=== PATIENT | female | born 1935 | race Caucasian/White ===

== ENCOUNTER 2021-01-07 10:51 | Outpatient (CLI) | payer OTHER, SELFPAY ==
--- NOTE | ~2021-01-07 | CT_ITS ---
EXAMINATION:CT chest high resolution wo ok DATE: 01/07/2021 11:27 INDICATION: Interstitial pulmonary disease, unspecified. TECHNIQUE: Computed tomography (CT) of the chest was performed without intravenous contrast. Automate d exposure control and iterative reconstruction technique were employed. The dose-length product (DLP ) was 608.28 mGy-cm. COMPARISON: Chest CT 07/01/2017 FINDINGS: There is mild scarring at the lung apices. There is mild atelectasis involving all lobes bi laterally. Again seen are subpleural bands in the lower lobes and right middle lobe. No bronchiectasi s or honeycombing. No pleural effusion. Cardiomegaly is noted. There are coronary artery calcificatio ns. There are calcifications of the aortic valve. No pericardial effusion. There is a small sliding h iatal hernia. There is a 2 subcutaneous masses in the posterior superior thorax measuring up to 15 mm , likely sebaceous cysts. There is moderate thoracic spondylosis. IMPRESSION: 1. Mild chronic interstitial lung disease. 2. Small sliding hiatal hernia. Reviewed, dictated and finalized at location A. [employer]
== END 2021-01-07 10:52 | disposition home or self-care (01) ==
LOC: ANHIMG 10:52
PROVIDERS: PCP Family Medicine; Visit Provider Nurse Practitioner Family
DX: J84.9 Interstitial pulmonary disease, unspecified (principal); K44.9 Diaphragmatic hernia without obstruction or gangrene
CPT/HCPCS: 71250

== ENCOUNTER 2021-01-23 14:22 | Outpatient (CLI) | payer OTHER, SELFPAY ==
[2021-01-23 14:30] VITALS: PULSE 87; O2SAT 95
[2021-01-23 14:35] VITALS: PULSE 106; O2SAT 96
[2021-01-23 14:40] VITALS: PULSE 85; O2SAT 96
--- NOTE | 2021-01-23 15:37 | HOMEO2EVAL ---
Evaluation was performed at [facility] Home Oxygen Evaluation RC: Home Oxygen (O2) Evaluation Start: 01/23/21 15:35 Freq: Status: Active Protocol: RPE Activity Type Activity Date Activity User E-Sign Co-Sign Detail Recorded Client Recorded Date Recorded By Document 01/23/21 14:30 DJO [email or web address] 01/23/21 15:37 DJO Document 01/23/21 14:35 DJO [email or web address] 01/23/21 15:37 DJO Document 01/23/21 14:40 [email or web address] [email or web address] 01/23/21 15:37 DJO 01/23/21 01/23/21 01/23/21 14:30 14:35 14:40 Home O2 Evaluation Test Phase Resting Exercise Resting Oxygen Delivery Room Air Room Air Room Air Pulse Oximetry (90-100 %) 95 96 96 Pulse Rate (60-100 beats/min) 87 106 H 85 Activity Tolerance Poor Ambulation Distance (feet) 200 Home Oxygen Evaluation Comments 6 MINUTE WALK NOT DONE DUE TO PT ONLY BEING ABLE TO WALK FOR SHORT DISTANCE DUE TO LEG AND BACK PAIN Treatment Charges O2 Evaluation - Outpatient
--- NOTE | 2021-01-26 12:50 | P.PCNPFT_ITS ---
PFT Procedure Performed PFT Procedure Performed Spirometry with Pre/Post Bronchodilator Plethysmography (Lung Vol) Diffusing Cap (DLCO) Flow Vol Loop PFT Interpretation This is a pulmonary function test with pre and post-bronchodilator spirometry, plethysmography and diffusing capacity. The test was performed and results interpreted in accordance with the 2019 and 2005 ATS/ERS Task Force guidelines respectively using the Global Lung Function Initiative-2012 reference equations. Patient demonstrated good effort and cooperation. Reproducibility criteria were met. The quality of the pre bronchodilator spirometry maneuver was Grade B and post bronchodilator spirometry maneuver was Grade B. Findings: Spirometry: The contour the inspiratory and expiratory flow tracing are normal. The pre bronchodilator FVC is 2.36 L, 84% predicted. The pre bronchodilator FEV1 is 1.77 L, 84% predicted. The FEV1: FVC ratio 75%. The post bronchodilator FVC is 2.21 L, representing a 7% decrease. The post bronchodilator FEV1 is 1.75 L, representing 1% decrease. The post bronchodilator FEV1: FVC ratio 79%. Plethysmography: The total lung capacity is 6.10 L, 105% predicted. The functional residual capacity is 4.53 L, 134% predicted. The residual volume is 3.74 L, 136% predicted. Diffusing capacity: The absolute diffusion capacity is 19.4, 94% predicted. The diffusing capacity corrected for alveolar volume is 4.31, 113% predicted. Impression: The spirometry is normal without evidence of an obstructive ab normality. There is no significant improvement after inhaling a single dose of albuterol. The total lung capacity is normal with an increased functional residual capacity and residual volume. This is an abnormal but nonspecific lung volume pattern. The diffusing capacity is normal. There are no prior studies for comparison
== END 2021-01-23 14:23 | disposition home or self-care (01) ==
PROVIDERS: PCP Family Medicine; Visit Provider Nurse Practitioner Family
DX: R06.02 Shortness of breath (principal); J84.9 Interstitial pulmonary disease, unspecified
CPT/HCPCS: 94060; 94618; 94726; 94729

== ENCOUNTER 2021-08-17 14:28 | Outpatient (CLI) | payer OTHER, SELFPAY ==
[2021-08-17 15:11] LABS: Aspartate Amino Transferase 48 U/L (14-36)
[2021-08-21 15:59] LABS: Actin Antibody (IgG) <20 U (<20)
== END 2021-08-17 14:29 | disposition home or self-care (01) ==
LOC: ANHLAB 14:30
PROVIDERS: Visit Provider Podiatrist Foot & Ankle Surgery
DX: B35.1 Tinea unguium (principal)
CPT/HCPCS: 36415; 83516; 84450

== ENCOUNTER 2021-09-22 14:12 | Outpatient (CLI) | payer OTHER, SELFPAY ==
[2021-09-25 08:22] LABS: Kappa\\Lambda Light Chains 1.22 (0.26-1.65); Lambda Light Chain 13.4 mg/L (5.7-26.3)
== END 2021-09-22 14:13 | disposition home or self-care (01) ==
PROVIDERS: PCP Hospitalist; Visit Provider Internal Medicine Cardiovascular Disease
DX: I27.20 Pulmonary hypertension, unspecified (principal); R06.00 Dyspnea, unspecified
CPT/HCPCS: 36415; 83883

== ENCOUNTER 2022-05-27 14:10 | Outpatient (CLI) | payer OTHER, SELFPAY ==
[2022-05-27 14:54] LABS: Alanine Aminotransferase 26 U/L (6-35); Aspartate Amino Transferase 37 U/L (14-36)
== END 2022-05-27 14:11 | disposition home or self-care (01) ==
LOC: ANHLAB 14:12
PROVIDERS: PCP Hospitalist; Visit Provider Podiatrist Foot & Ankle Surgery
DX: B35.1 Tinea unguium (principal)
CPT/HCPCS: 36415; 84450; 84460

== ENCOUNTER 2022-07-28 14:54 | Observation (INO) | payer OTHER, SELFPAY ==
[2022-07-28] VITALS (8 sets, daily range): BP systolic 152–187; BP diastolic 31–64; PULSE 25–40; RESP 16–20; TEMP 36.3–36.6; O2SAT 94–100; BMI 38.0
--- NOTE | ~2022-07-28 | XR_ITS ---
XR chest 1V portable 07/28/2022 15:34 Indication: Bradycardia Procedure: AP portable chest Comparison: 07/28/2022 Findings: Borderline heart size. Bilateral perihilar interstitial infiltrates with peribronchial thic kening. No pleural effusion or pneumothorax. Impression: 1: Bilateral interstitial infiltrates may represent mild edema or atypical pneumonia. Reviewed, dictated and finalized at location [] Impression: 1: Bilateral interstitial infiltrates may represent mild edema or atypical pneu monia.
--- NOTE | ~2022-07-28 | XR_ITS ---
Clinical Indication: Pacemaker placement AP and lateral views of the chest: Comparison: 07/29/2022 Findings: There is minimal bibasilar pulmonary haziness. No pleural effusion or pneumothorax evident. Cardiomediastinal silhouette is stable, with pacemaker device in place. Bones and soft tissues are unremarkable. Impression: Possible minimal bibasilar pulmonary edema. No pneumothorax. Pacemaker in place. Reviewed, dictated and finalized at [facility]. Impression: Possible minimal bibasilar pulmonary edema. No pneumothorax. Pacemaker in place.
--- NOTE | ~2022-07-28 | XR_ITS ---
XR chest 1V portable 07/29/2022 16:48 Indication: Pacemaker insertion Procedure: AP portable chest Comparison: Comparison to multiple prior studies sequentially, with oldest reviewed study dated 06/21. Findings: Moderate cardiomegaly. Diffuse hazy bilateral airspace disease. Pacemaker leads are in expe cted position. Possible small left effusion. No pneumothorax. Impression: 1: Hazy diffuse bilateral airspace disease may represent edema or pneumonia. 2: Cardiomegaly. Reviewed, dictated and finalized at location L. Impression: 1: Hazy diffuse bilateral airspace disease may represent edema or pneumonia. 2: Cardiomegaly.
--- NOTE | ~2022-07-28 | US_ITS ---
EXAMINATION: US venous doppler [facility] DATE: 07/28/2022 22:38 INDICATION: edema . TECHNIQUE: Grayscale images without and with compression and Doppler images of the bilateral lower ex tremity veins were obtained. COMPARISON: 07/01/2017. FINDINGS: The right common femoral vein, profunda (deep) femoral vein, femoral vein, popliteal vein, peroneal v ein, posterior tibial veins, gastrocnemius vein, and greater saphenous vein are patent. The left common femoral vein, profunda (deep) femoral vein, femoral vein, popliteal vein, peroneal v ein, posterior tibial veins, gastrocnemius vein, and greater saphenous vein are patent. IMPRESSION: 1. Patent bilateral lower extremity veins. No evidence of deep venous thrombosis. Reviewed, dictated and finalized at location K. IMPRESSION: 1. Patent bilateral lower extremity veins. No evidence of deep venous thrombos is.
--- NOTE | 2022-07-28 14:59 | ECG_ITS ---
Measurements Intervals [place] Rate: 37 P: AL: 0 QRS: 35 QRSD: 131 T: 25 QT: 475 QTc: 376 Interpretive Statements SINUS RHYTHM WITH COMPLETE HEART BLOCK, UNDERLYING RBBB, EFFECTIVE VENTRICULAR RATE OF 37 BEATS PER MINUTE NO PREVIOUS ECG AVAILABLE FOR COMPARISON Electronically Signed On 07-28-2022 19:58:53 CDT by Brigitte Martin M.D.
[2022-07-28 15:32] LABS: Basophils Absolute Auto 0.1 K/mm3 (0.0-0.1); Basophils Percent Auto 0.6 % (0.2-1.2); Eosinophils Absolute Auto 0.1 K/mm3 (0-0.3); Hematocrit 39.6 % (37.0-47.0); Hemoglobin 12.5 g/dL (12.0-15.0); Immature Granulocyte Absolute 0.03 K/mm3 (0.00-0.031); Immature Granulocyte Percent A 0.3 % (0-0.5); Lymphocytes Absolute Auto 1.95 K/mm3 (0.9-3.2); Lymphocytes Percent Auto 18.7 % (18.3-44.2); Mean Corpuscular HGB Conc 31.6 g/dl (32-36); Mean Corpuscular Hemoglobin 28.7 pg (26-34); Mean Platelet Volume 11.4 fl (7.4-10.4); Monocytes Absolute Auto 0.9 K/mm3 (0.1-0.6); Monocytes Percent Auto 8.8 % (2.6-8.5); Neutrophils Absolute Auto 7.4 K/mm3 (1.3-6.7); Neutrophils Percent Auto 70.6 % (45.5-73.1); Platelet Count Result 241 k/mm3 (150-375); Red Blood Count 4.35 M/mm3 (4.2-5.4); Red Cell Distribution Width 14.2 % (11.5-14.5); White Blood Count 10.4 K/mm3 (4.5-10.0)
[2022-07-28 15:43] LABS: Partial Thromboplastin Time 24.6 SECONDS (22.3-36.8)
[2022-07-28 15:51] LABS: Alanine Aminotransferase 25 U/L (6-35); Albumin Level 4.3 g/dL (3.5-5.1); Alkaline Phosphatase 99 U/L (38-126); Anion Gap 10 mmol/L (8-16); Aspartate Amino Transferase 26 U/L (14-36); Bilirubin,Total 0.3 mg/dL (0.2-1.3); Blood Urea Nitrogen 64 mg/dL (7-17); Carbon Dioxide 20 mmol/L (22-30); Chloride 113 mmol/L (98-107); Estimated CRCL calculation 42 ml/min; Estimated Glomerular Filt Rate 47; Glucose 181 mg/dL (65-110); Potassium 5.5 mmol/L (3.4-5.0); Sodium 143 mmol/L (137-145)
[2022-07-28 16:00] LABS: NT Pro B Type Natriuretic Pept 3990 pg/mL (19.9-100); Troponin I 0.024 ng/mL (0.000-0.034)
[2022-07-28 16:10] LABS: Glucose Point of Care 161 mg/dl (65-105)
--- NOTE | 2022-07-28 16:26 | ED.ARRPALP ---
HPI - Arrhythmia/Palpitations General Chief Complaint: Arrhythmia/Palpitations Stated Complaint: breathing issues/ low HR Time Seen by Provider: 07/28/22 15:04 History of Present Illness HPI narrative: Patient is an 87-year-old female who presents ER with shortness of breath. Reports she has chronic shortness of breath and cough related to her lung disease. Unfortunately over the last 5 days she has developed sudden increased dyspnea. She feels short of breath at rest and extremely fatigued with going from sitting to standing. She noticed some central chest pressure 4 days ago as well that is different for her. Daughter came over to the house and it was noted that her heart rate was in the 30s yesterday. They called patient's computer networking instructor adjunct Dr. Dewitt. The office recommended she come in to be evaluated for the slow heart rate and symptoms. Related Data Home Medications Medication Instructions Recorded Confirmed aspirin 81 mg tablet,delayed 81 mg PO DAILY 02/16/19 01/13/22 release (Adult Low Dose Aspirin) atorvastatin 80 mg tablet 80 mg PO DAILY 02/16/19 01/13/22 cholecalciferol (vitamin D3) 50 2,000 unit PO DAILY 02/16/19 01/13/22 mcg (2,000 unit) capsule furosemide 20 mg tablet 20 mg PO QAM 02/16/19 01/13/22 insulin aspart U-100 100 unit/mL 20 unit subcut TID 02/16/19 01/13/22 subcutaneous solution (Novolog U-100 Insulin aspart) lisinopril 40 mg tablet 40 mg PO DAILY 02/16/19 01/13/22 oxybutynin chloride 10 mg 10 mg PO DAILY 02/16/19 01/13/22 tablet,extended release 24 hr verapamil 240 mg tablet,extended 240 mg PO DAILY 02/16/19 01/13/22 release acetaminophen 500 mg capsule 1,000 mg PO Q6H PRN 11/28/20 01/13/22 (Tylophen) hydrocodone 5 mg-acetaminophen 325 1 tablet PO QHS PRN 07/02/21 01/13/22 mg tablet Allergies Allergy/AdvReac Type Severity Reaction Status Date / Time pregabalin Allergy Intermediate Rash Verified 07/28/22 18:05 Sulfa (Sulfonamide Allergy Unknown unk Verified 07/28/22 14:56 Antibiotics) Review of Systems Review of Systems: All systems reviewed & are unremarkable except as noted in HPI and below Constitutional: Constitutional: Denies chills, Reports fatigue and Denies fever(s) ENT: Denies nasal congestion and Denies sore throat Cardiovascular: Cardiovascular: Reports chest pain, Denies rapid heart rate, Denies radiating jaw, neck or arm pain and Reports slow heart rate Respiratory: Respiratory: Denies cough, Reports dyspnea and Denies wheezing Gastrointestinal: Gastrointestinal: Denies abdominal pain, Denies nausea and Denies vomiting Neurologic: Denies focal weakness and Denies numbness PMF Past Medical History Medical History (Updated 07/28/22 @ 17:51 by Brigitte Martin MD) Acute diastolic CHF (congestive heart failure) Aortic stenosis Moderate by echo in 2022. CAD (coronary artery disease) Left anterior descending stent in 2016. Essential hypertension Generalized osteoarthritis of multiple sites Hypercholesterolemia Insulin dependent diabetes mellitus DELLA (obstructive sleep apnea) Surgical History Surgical History Total knee replacement status Family History Family History Other Cerebrovascular accident Family history of Alzheimer's disease Family history of alcoholism Family history of arthritis Family history of cardiovascular disease Family history of lung disease Hypertension Social History Social History Social History: Patient lives alone in [facility]. Her niece, Danna, checks in on her frequently. Smoking status: Never smoker Second hand tobacco smoke exposure: Yes Alcohol intake: current Drinks per week: 1 Exam Narrative: GENERAL: Well-appearing, well-nourished, and in no acute distress. HEAD: Normocephalic, atrauma
--- NOTE | 2022-07-28 17:39 | PM.CNCAR ---
Assessment and Plan Assessment and plan (1) Complete heart block: Code(s): I44.2 - Atrioventricular block, complete Status: Acute Assessment and Plan: Patient presents with new onset of complete heart block, symptomatic with heart failure. She has an underlying RBBB. She does take verapamil SR 240 mg daily which may contribute but most likely this is AV conduction disease secondary to aging. Because of her history of aortic stenosis probably has a lot of calcium along the conduction system as well. She is fairly stable, with no pauses. I recommended a pacemaker implant which we can do tomorrow. However, if there is an emergency we can do external pacing, or place a temporary transvenous pacemaker. If she would prefer to wait a day or 2 to see if this resolves off of her verapamil that is a possibility 2, although think is unlikely it resolve. The patient after discussion with her niece, is eager to have a pacemaker placed and get better quicker. This is potentially life-threatening situation which carries considerable morbidity mortality --atropine prn --permanent dual-chamber pacemaker tomorrow. Reviewed risks of pacemaker implant with patient. These include breathing problems, allergic reactions, bleeding, infection, pneumothorax, cardiac puncture, need for unanticipated surgery, lead dislodgement among others. (2) Acute diastolic CHF (congestive heart failure): Code(s): I50.31 - Acute diastolic (congestive) heart failure Status: Acute Assessment and Plan: CHF caused by bradycardia. patient has known diastolic dysfunction but has not had CHF before. DOes have pre-renal azotemia, due to poor renal perfusion, but I think she would benefit from some diuresis. --Lasix 40 mg IV push x1 --pacemaker implant tomorrow (3) CAD (coronary artery disease): Code(s): I25.10 - Atherosclerotic heart disease of [place] coronary artery without angina pectoris Status: Acute Assessment and Plan: STable CAD, h/o stent (4) Aortic stenosis: Code(s): I35.0 - Nonrheumatic aortic (valve) stenosis Status: Acute Assessment and Plan: Moderate aortic stenosis by Echo 2022. (5) DELLA (obstructive sleep apnea): Code(s): G47.33 - Obstructive sleep apnea (adult) (pediatric) Status: Acute Assessment and Plan: Noncompliant w/ CPAP uses nocturnal O2 History of Present Illness History of Present Illness Consult date/time: 07/28/22 17:39 Reason For Visit: Complete heart block Narrative: Tiffany Raymond is an 87 y.o. WF whom we were asked to see by DR. Queen for advice and opinion regarding her complete heart block, in consultation. She has been followed by Dr. Dweitt for history of CAD and stent in 2017, and moderate aortic stenosis. In addition she has diabetes and spinal stenosis, sleep apnea, noncompliant with CPAP. The patient has chronic DUMONT but this has been a lot worse since Tuesday. Her niece checked her pulse ox at home and found her heart rate was in the 30s and 40s. The patient has had significant DUMONT, had some orthopnea last night. Chronic edema. Some chest pressure when she lay down last night. She came to the emergency room was found to be in complete heart block with heart rates around 38-44 beats per minute. Underlying RBBB pattern which is chronic. No dizziness or syncope. Because of her chronic pain spinal stenosis she sleeps in an easy chair. She has sleep apnea but and could not tolerate CPAP so sleeps with oxygen. [place]. She is right-handed and has never had a clavicular fracture. 10/2021 echo: EF 66%, LVH, diastolic dysfunction, moderate aortic stenosis mean gradient 13 mmHg, STAN 1.4 cm2 10/2019 to Lexiscan: EF 59%, small area of apical septal lateral ischemia Review of Systems Constitutional: Constitutional: Denies fever(s) Eyes: Eyes: Reports no additional eye compla
[2022-07-28 17:53] LABS: Glucose Point of Care 148 mg/dl (65-105)
--- NOTE | 2022-07-28 18:00 | ADMGEN ---
This patient, Tiffany Raymond, was admitted to IMU Room 232-01. Patient/family oriented to hospital policies and general routines including ID bracelet, bed and alarms, visiting hours, pain management, procedures, bathroom and other care routines, personal items, smoking policy, room service/diet, and visiting hours. Information on how to activate the Rapid Response Team has been discussed. Patient/Family are encouraged to report perceived risks to care and to ask questions if they do not understand what they are told or what they should do.
[2022-07-28] MEDS: FUROSEMIDE INJ 40 MG/4 ML VIAL IV PUSH (18:40)
[2022-07-28 20:13] LABS: Glucose Point of Care 228 mg/dl (65-105)
[2022-07-28] MEDS: AZELASTINE HCL NASAL 0.1% 137 MCG/SPR 30 ML BTL 1 SPRAY NASAL (20:37)
[2022-07-28] MEDS: ATORVASTATIN 40 MG TABLET 80 MG PO (20:37)
[2022-07-28] MEDS: INSULIN ASPART (*BKC) 100 UNITS/ML SUB-Q ×2 (20:38)
[2022-07-28] MEDS: CHOLECALCIFEROL 1,000 UNITS TABLET 2000 UNITS PO (20:38)
[2022-07-28 21:25] LABS: Anion Gap 7 mmol/L (8-16); Blood Urea Nitrogen 62 mg/dL (7-17); Calcium 9.7 mg/dL (8.4-10.2); Carbon Dioxide 24 mmol/L (22-30); Chloride 111 mmol/L (98-107); Estimated CRCL calculation 30 ml/min; Estimated Glomerular Filt Rate 30; Glucose 231 mg/dL (65-110); Potassium 5.6 mmol/L (3.4-5.0); Sodium 142 mmol/L (137-145)
[2022-07-28] MEDS: HYDROcodone/acetaminophen (*CRX) 5-325 MG TABLET 1 TAB PO (21:46)
[2022-07-28] MEDS: oxyBUTYnin CHLORIDE XL 5 MG TAB.ER.24 PO (21:47)
[2022-07-28 22:19] LABS: Hemoglobin A1C 6.4 % (<5.7)
[2022-07-29] VITALS (23 sets, daily range): BP systolic 114–179; BP diastolic 29–95; PULSE 33–89; RESP 16–24; TEMP 35.9–37.4; O2SAT 97–100
--- NOTE | 2022-07-29 00:30 | PM.IMHP ---
H&P: HPI History of Present Illness Date/Time: 07/28/22 19:30 Chief Complaint: Shortness of breath and low heart rate. Narrative: This is an 87-year-old female with coronary artery disease, hypertension, dyslipidemia, aortic stenosis, obstructive sleep apnea (noncompliant with CPAP though wears oxygen at night), insulin-dependent diabetes, and other comorbidities who presented to the emergency department via private vehicle from home for evaluation of shortness of breath and low heart rate. The patient provides the following history. She reports chronic dyspnea on exertion though it has been much worse since the weekend. She has noticed increasing lower extremity edema and reports orthopnea last night. Her niece checked her pulse ox yesterday and noted that her heart rate was in the 30s and 40s but her SpO2 was reportedly well within normal limits. She decided to come in for evaluation today as she had mild chest pressure last night while trying to sleep. In the ED she was found to be in complete heart block with rates in the upper 30s to low 40s with stable blood pressures. She is being admitted in this setting for pacemaker implantation tomorrow per Dr. Martin. At the time my evaluation she does not have any significant complaints though she reports that she has not really gotten out of bed much that she got here today. Her main concern is that of her not yet receiving her insulin following dinner. She denies current chest pain, significant shortness of breath, nausea, vomiting, and sweats. Review of Systems Review of Systems: Twelve systems were reviewed and are negative except for as per HPI. [facility] Past Medical History Medical History (Updated 07/29/22 @ 00:39 by Steffi Ramirez PA-C) Acute diastolic CHF (congestive heart failure) Aortic stenosis Moderate by echo in 2022. CAD (coronary artery disease) Left anterior descending stent in 2016. Chronic back pain Essential hypertension Generalized osteoarthritis of multiple sites Hypercholesterolemia Insulin dependent diabetes mellitus DELLA (obstructive sleep apnea) Intolerant to CPAP, wears oxygen instead. Surgical History Surgical History (Updated 07/29/22 @ 00:36 by Steffi Ramirez PA-C) History of appendectomy History of bilateral cataract extraction History of cardiac catheterization History of coronary artery stent placement History of tonsillectomy Total knee replacement status Family History Family History Other Cerebrovascular accident Family history of Alzheimer's disease Family history of alcoholism Family history of arthritis Family history of cardiovascular disease Family history of lung disease Hypertension Social History Social History Social History: Patient lives alone in [facility]. Her niece, Danna, checks in on her frequently. Smoking status: Never smoker Second hand tobacco smoke exposure: Yes Alcohol intake: never Drinks per week: 1 Substance use: never Lack of Transportation: No Lack of Food: Never True Current Housing: I Have Housing Concerned About Future Housing: No Difficulty Paying Gas/Electric Bills: YES Difficulty Paying for Meds: No Currently Unemployed: No Education: Bachelor's Degree Difficulty w/ Childcare or Family Care: No Spiritual care concerns: No Meds Home Medications and Allergies Home Medications Medication Instructions Recorded Confirmed Type aspirin 81 mg tablet,delayed 81 mg PO HS 02/16/19 07/28/22 History release (Adult Low Dose Aspirin) cholecalciferol (vitamin D3) 50 2,000 unit PO HS 02/16/19 07/28/22 History mcg (2,000 unit) capsule furosemide 20 mg tablet 20 mg PO HS 02/16/19 07/28/22 History atorvastatin 80 mg tablet 80 mg PO HS 07/28/22 07/28/22 History azelastine 137 mcg (0.1 %) nasal 1 spray intranasal Q1
[2022-07-29] MEDS: ALBUTEROL SULFATE NEB 2.5 MG/3 ML INH INHALATION (00:54)
[2022-07-29] MEDS: SODIUM POLYSTYRENE SULFONONATE 15 GM/60 ML BTL 30 GM PO (01:34)
[2022-07-29] MEDS: SODIUM BICARBONATE 8.4% 50 MEQ/50 ML SYRINGE IV PUSH (01:35)
[2022-07-29] MEDS: INSULIN HUMAN REGULAR (*BKC) 100 UNITS/ML 10 UNITS IV PUSH (01:35)
[2022-07-29] MEDS: DEXTROSE 50% 25 GM/50 ML SYRINGE IV PUSH (01:35)
[2022-07-29 01:41] LABS: Glucose Point of Care 180 mg/dl (65-105)
[2022-07-29] MEDS: CALCIUM GLUC 1,000 MG/NS 50 ML 1,000 MG/50 ML BAG 100 MG IVPB (01:44)
[2022-07-29 02:24] LABS: Glucose Point of Care 179 mg/dl (65-105)
[2022-07-29 03:49] LABS: Anion Gap 5 mmol/L (8-16); Blood Urea Nitrogen 66 mg/dL (7-17); Calcium 10.1 mg/dL (8.4-10.2); Carbon Dioxide 28 mmol/L (22-30); Chloride 111 mmol/L (98-107); Estimated CRCL calculation 34 ml/min; Estimated Glomerular Filt Rate 35; Glucose 161 mg/dL (65-110); Potassium 4.8 mmol/L (3.4-5.0); Sodium 144 mmol/L (137-145)
[2022-07-29 07:37] LABS: Glucose Point of Care 153 mg/dl (65-105)
[2022-07-29] MEDS: FUROSEMIDE 40 MG TABLET PO (08:39)
[2022-07-29] MEDS: lisinopriL 20 MG TABLET 40 MG PO (08:39)
[2022-07-29] MEDS: AZELASTINE HCL NASAL 0.1% 137 MCG/SPR 30 ML BTL 1 SPRAY NASAL ×2 (08:39→20:33)
--- NOTE | 2022-07-29 08:50 | PM.PNCARD ---
Progress Note: A&P Assessment and Plan (1) Complete heart block: Code(s): I44.2 - Atrioventricular block, complete Status: Acute Assessment and Plan: Patient presents with new onset of complete heart block, symptomatic with heart failure. She has an underlying RBBB. She does take verapamil SR 240 mg daily which may contribute but most likely this is AV conduction disease secondary to aging. Because of her history of aortic stenosis probably has a lot of calcium along the conduction system as well. She is fairly stable, with no pauses, but this has not resolved since her last dose of verapamil 07/27/2022. I recommended a pacemaker implant which we can do tomorrow. The patient after discussion with her niece, is eager to have a pacemaker placed and get better quicker. This is potentially life-threatening situation which carries considerable morbidity mortality --atropine prn --permanent dual-chamber pacemaker at 1:30 pm today, with anesthesia assistance. Discussed w/ anesthesia, Dr. Case. Will place a temporary pacer immediately prior as a back up. Reviewed risks of pacemaker implant with patient. These include breathing problems, allergic reactions, bleeding, infection, pneumothorax, cardiac puncture, need for unanticipated surgery, lead dislodgement among others. Pt desires to proceed. (2) Acute diastolic CHF (congestive heart failure): Code(s): I50.31 - Acute diastolic (congestive) heart failure Status: Acute Assessment and Plan: CHF caused by bradycardia. Patient has known diastolic dysfunction but has not had CHF before. Does have pre-renal azotemia, due to poor renal perfusion, but I think she would benefit from another dose of diuretic. --Lasix 40 mg IV push x1 --pacemaker implant today (3) CAD (coronary artery disease): Code(s): I25.10 - Atherosclerotic heart disease of [place] coronary artery without angina pectoris Status: Acute Assessment and Plan: Stable CAD, h/o stent (4) Aortic stenosis: Code(s): I35.0 - Nonrheumatic aortic (valve) stenosis Status: Acute Assessment and Plan: Moderate aortic stenosis by Echo 2022. (5) DELLA (obstructive sleep apnea): Code(s): G47.33 - Obstructive sleep apnea (adult) (pediatric) Status: Acute Assessment and Plan: Noncompliant w/ CPAP uses nocturnal O2 Subjective Date/time seen: 07/29/22 08:50 Interval history: Follow-up for complete heart block, acute diastolic CHF. Tiffany Raymond has been followed by Dr. Dewitt for history of CAD and stent in 2017, and moderate aortic stenosis.? In addition she has diabetes and spinal stenosis, sleep apnea, noncompliant with CPAP. Date of service 07/29/2022: Uncomfortable night due to pain from spinal stenosis, and intermittent shortness of breath. On 3 L O2 she is oxygenating well and breathing better. Anastasia Clay is at the bedside. Review of Systems Review of Systems: No chest pain, some intermittent shortness of breath, complains of back pain and right leg pain due to spinal stenosis, no GI problems. Exam Const: General: cooperative and uncomfortable (Back pain with movement); No healthy appearing, comfortable or confusion Orientation/consciousness: oriented to person, patient oriented x3 and No confusion HENMT: Mouth: Yes moist mucous membranes Eyes: General: appearance normal, both eyes and all related structures Neck: Neck: supple Resp: Effort & Inspection: normal respiratory effort Auscultation: rales (Rales 1/4 up bilaterally) Cardio: Rate: regular rate and bradycardic Rhythm: regular rhythm Heart sounds: Murmur heart sound present (1/6 DEJA) GI: GI Palp: No abdominal tenderness Skin: General skin exam: normal color and no rashes or lesions noted Neuro: General: oriented to person, patient oriented x3 and No confusion Extrem: Right lower extremity: edema Left lower extremity: edema Other: Mild bilatera
[2022-07-29] MEDS: FUROSEMIDE INJ 40 MG/4 ML VIAL 20 MG IV PUSH ×2 (11:05→18:18)
[2022-07-29 11:59] LABS: Glucose Point of Care 167 mg/dl (65-105)
--- NOTE | 2022-07-29 13:00 | PC.NURSE ---
Pt to laborer tanbark via bed for pacemaker placement.
--- NOTE | 2022-07-29 13:08 | WPDANESEPP ---
Anes - Eval Pre Procedure Procedure: Operation Date: 07/29/22 13:30 Proposed Procedures p Temporary Pacemaker Insertion, - Brigitte Martin MD s Dual Chamber Pacemaker Insertion - Brigitte Martin MD Date/Time: 07/29/22 13:08 Surgeon: elvis Preop Diagnosis: 3rd degree heart block Pre Op Diagnosis: Complete heart block Patient Data Age: 87 Gender: F Height: 1.75 m Weight: 116.9 kg Last Vital Signs Temp 37.4 C 07/29/22 12:00 Pulse 37 L 07/29/22 12:00 Resp 24 H 07/29/22 12:00 BP 155/38 H 07/29/22 12:00 Pulse Ox 98 07/29/22 12:00 O2 Del Method Nasal Cannula 07/29/22 12:00 O2 Flow Rate 3 07/29/22 12:00 Allergies Allergy/AdvReac Type Severity Reaction Status Date / Time pregabalin Allergy Intermediate Rash Verified 07/28/22 18:05 Sulfa (Sulfonamide Allergy Unknown unk Verified 07/28/22 14:56 Antibiotics) Home Medications Medication Instructions Recorded Confirmed Type aspirin 81 mg tablet,delayed 81 mg PO HS 02/16/19 07/28/22 History release (Adult Low Dose Aspirin) cholecalciferol (vitamin D3) 50 2,000 unit PO HS 02/16/19 07/28/22 History mcg (2,000 unit) capsule furosemide 20 mg tablet 20 mg PO HS 02/16/19 07/28/22 History atorvastatin 80 mg tablet 80 mg PO HS 07/28/22 07/28/22 History azelastine 137 mcg (0.1 %) nasal 1 spray intranasal Q12H 07/28/22 07/28/22 History spray aerosol furosemide 40 mg tablet 40 mg PO DAILY 07/28/22 07/28/22 History hydrocodone 5 mg-acetaminophen 325 1 tablet PO TID PRN Pain 07/28/22 07/28/22 History mg tablet insulin aspart U-100 100 unit/mL See Rx Instructions .Route .COMPLEX 07/28/22 07/28/22 History (3 mL) subcutaneous pen insulin degludec 100 unit/mL (3 75 unit subcut DAILY 07/28/22 07/29/22 History mL) subcutaneous pen (Tresiba FlexTouch U-100 insulin) lisinopril 40 mg tablet 40 mg PO DAILY 07/28/22 07/28/22 History oxybutynin chloride 5 mg 5 mg PO Q12H 07/28/22 07/28/22 History tablet,extended release 24 hr terbinafine HCl 250 mg tablet 250 mg PO DAILY 07/28/22 07/28/22 History verapamil 240 mg tablet,extended 240 mg PO HS 07/28/22 07/28/22 History release Laboratory Tests 07/28/22 07/28/22 07/28/22 15:21 16:06 17:50 WBC 10.4 H K/mm3 (4.5-10.0) RBC 4.35 M/mm3 (4.2-5.4) Hgb 12.5 g/dL (12.0-15.0) Hct 39.6 % (37.0-47.0) MCV 91.0 fl (80-100) MCH 28.7 pg (26-34) MCHC 31.6 L g/dl (32-36) RDW 14.2 % (11.5-14.5) Plt Count 241 k/mm3 (150-375) MPV 11.4 H fl (7.4-10.4) Immature Gran % (Auto) 0.3 % (0-0.5) Neut % (Auto) 70.6 % (45.5-73.1) Lymph % (Auto) 18.7 % (18.3-44.2) Delta % (Auto) 8.8 H % (2.6-8.5) Eos % (Auto) 1.0 % (0-4.4) Baso % (Auto) 0.6 % (0.2-1.2) Lymph # (Auto) 1.95 K/mm3 (0.9-3.2) Delta # (Auto) 0.9 H K/mm3 (0.1-0.6) Eos # (Auto) 0.1 K/mm3 (0-0.3) Baso # (Auto) 0.1 K/mm3 (0.0-0.1) Abs Immat Gran (auto) 0.03 K/mm3 (0.00-0.031) Absolute Neuts (auto) 7.4 H K/mm3 (1.3-6.7) Absolute Nucleated RBC 0.0 K/mm3 (0.0-0.012) Nucleated RBC % 0.0 % (0.0-0.2) PT 13.0 Seconds (11.1-14.7) INR 1.0 APTT 24.6 SECONDS (22.3-36.8) Sodium 143 mmol/L (137-145) Potassium 5.5 H mmol/L (3.4-5.0) Chloride 113 H mmol/L (98-107) Carbon Dioxide 20 L mmol/L (22-30) Anion Gap 10 mmol/L (8-16) BUN 64 H mg/dL (7-17) Creatinine 1.10 H mg/dL (0.7-1.0) Estim Creat Clear Calc 42 ml/min Estimated GFR 47 L (59 - ) Glucose 181 H mg/dL (65-110) POC Capillary Glucose 161 H mg/dl 148 H mg/dl (65-105) (65-105) Hemoglobin A1c Calcium 10.0 mg/dL (8.4-10.2) Magnesium
--- NOTE | 2022-07-29 13:12 | WPDHPUPDATE1 ---
History and Physical Update Update Date/Time: 07/29/22 13:12 History and Physical has been reviewed, including an updated exam of the patient. There are NO changes in the patient's condition. Risks, benefits, and alternatives have been discussed and questions answered. Patient agrees to proceed with procedure.
--- NOTE | 2022-07-29 13:12 | WPDMODSED ---
Moderate Sedation Note-Pt Data Patient Data Diagnosis: Complete heart block CHF Present Complaint: Complete heart block CHF Procedure to be performed/Plan: Anesthesia per Anesthesia Placement of a temporary Transvenous pacemaker Venogram Placement of a permanent dual-chamber pacemaker Allergies Allergy/AdvReac Type Severity Reaction Status Date / Time pregabalin Allergy Intermediate Rash Verified 07/28/22 18:05 Sulfa (Sulfonamide Allergy Unknown unk Verified 07/28/22 14:56 Antibiotics) Home Medications Medication Instructions Recorded Confirmed Type aspirin 81 mg tablet,delayed 81 mg PO HS 02/16/19 07/28/22 History release (Adult Low Dose Aspirin) cholecalciferol (vitamin D3) 50 2,000 unit PO HS 02/16/19 07/28/22 History mcg (2,000 unit) capsule furosemide 20 mg tablet 20 mg PO HS 02/16/19 07/28/22 History atorvastatin 80 mg tablet 80 mg PO HS 07/28/22 07/28/22 History azelastine 137 mcg (0.1 %) nasal 1 spray intranasal Q12H 07/28/22 07/28/22 History spray aerosol furosemide 40 mg tablet 40 mg PO DAILY 07/28/22 07/28/22 History hydrocodone 5 mg-acetaminophen 325 1 tablet PO TID PRN Pain 07/28/22 07/28/22 History mg tablet insulin aspart U-100 100 unit/mL See Rx Instructions .Route .COMPLEX 07/28/22 07/28/22 History (3 mL) subcutaneous pen insulin degludec 100 unit/mL (3 75 unit subcut DAILY 07/28/22 07/29/22 History mL) subcutaneous pen (Tresiba FlexTouch U-100 insulin) lisinopril 40 mg tablet 40 mg PO DAILY 07/28/22 07/28/22 History oxybutynin chloride 5 mg 5 mg PO Q12H 07/28/22 07/28/22 History tablet,extended release 24 hr terbinafine HCl 250 mg tablet 250 mg PO DAILY 07/28/22 07/28/22 History verapamil 240 mg tablet,extended 240 mg PO HS 07/28/22 07/28/22 History release Current Medications: Active Medications Acetaminophen (Acetaminophen 325 Mg Tablet) 650 mg PO Q4H PRN PRN Reason: Mild Pain (1-3) or Fever Hydrocodone Bitart/Acetaminophen (Hydrocodone/Acetaminophen (*Crx) 5-325 Mg Tablet) 1 tab PO Q4H PRN PRN Reason: Pain Rated 4-6 Last Admin: 07/28/22 21:46 Dose: 1 tab Atorvastatin Calcium (Atorvastatin 40 Mg Tablet) 80 mg PO [facility] Last Admin: 07/28/22 20:37 Dose: 80 mg Atropine Sulfate (Atropine Sulfate 1 Mg/10 Ml Syringe) 1 mg IV PUSH Q1H PRN PRN Reason: for HR < 35 Azelastine HCl (Azelastine Hcl Nasal 0.1% 137 Mcg/Spr 30 Ml Btl) 1 spray NASAL Q12H [facility] Last Admin: 07/29/22 08:39 Dose: 1 spray Dextrose (Dextrose 50% 25 Gm/50 Ml Syringe) 12.5 gm IV PUSH PRN PRN; Protocol PRN Reason: Hypoglycemia Furosemide (Furosemide 40 Mg Tablet) 40 mg PO DAILY [facility] Last Admin: 07/29/22 08:39 Dose: 40 mg Glucagon (Glucagon For Inj 1 Mg Vial) 1 mg IM PRN PRN; Protocol PRN Reason: Hypoglycemia Glucose (Glucose Oral Gel 15 Gm Of Glucse In 37.5 Gm Tube) 15 gm PO PRN PRN; Protocol PRN Reason: Hypoglycemia Dextrose (Dextrose 5% 1,000 Ml) 1,000 mls @ 100 mls/hr IVPB PRN PRN; Protocol PRN Reason: Hypoglycemia Insulin Aspart (Insulin Aspart (*Bkc) 100 Units/Ml) 3 - 6 units SUB-Q TIDWM [facility]; Protocol Last Admin: 07/29/22 11:50 Dose: Not Given Insulin Aspart (Insulin Aspart (*Bkc) 100 Units/Ml) 1 - 3 units SUB-Q [facility]; Protocol Last Admin: 07/28/22 20:38 Dose: 1 units Insulin Glargine (Insulin Glargine (Lantus) 1,000 Units/10 Ml Vial) 75 units SUB-Q DAILY [facility] Lisinopril (Lisinopril 20 Mg Tablet) 40 mg PO DAILY [facility] Last Admin: 07/29/22 08:39 Dose: 40 mg Oxybutynin Chloride (Oxybutynin Chloride Xl 5 Mg Tab.Er.24) 5 mg PO Q12H [facility] Last Admin: 07/29/22 11:06 Dose: Not Given Vitamin D (Cholecalciferol 1,000 Units Tablet) 2,000 units PO [facility] Last Admin: 07/28/22 20:38 Dose: 2,000 units Sedation/Anesthesia: No previous sedation/anesthesia problems (including family history). [facility] Past Medical History Medical History Acute diastolic CHF (congestive heart failure) Aortic elizabeth
--- NOTE | 2022-07-29 13:39 | PM.IMPN ---
Progress Note: A&P Assessment and Plan (1) Complete heart block: Code(s): I44.2 - Atrioventricular block, complete Status: Acute Assessment and Plan: cardiology consulted. patient going for ppm placement today. verapamil hold (2) Acute on chronic diastolic congestive heart failure: Code(s): I50.33 - Acute on chronic diastolic (congestive) heart failure Status: Acute Assessment and Plan: continue Lasix. Monitor intake and output. Appreciate Cardiology input (3) Acute kidney injury: Code(s): N17.9 - Acute kidney failure, unspecified Status: Acute Assessment and Plan: Avoid nephrotoxic medications. Monitor renal functions (4) Insulin dependent diabetes mellitus: Status: Acute Assessment and Plan: Continue basal insulin. Initiate sliding scale insulin, Accu-Cheks, and hypoglycemic protocol. Check hemoglobin A1c. (5) Obstructive sleep apnea: Code(s): G47.33 - Obstructive sleep apnea (adult) (pediatric) Status: Acute Assessment and Plan: She is noncompliant with CPAP at home but uses nocturnal oxygen. Subjective Date/time seen: 07/29/22 13:39 Interval history: patient reports shortness of breath Review of Systems Review of Systems: Twelve systems were reviewed and are negative except for as per HPI. Exam Const: General: cooperative and uncomfortable (Back pain with movement); No healthy appearing, comfortable or confusion Orientation/consciousness: oriented to person, patient oriented x3 and No confusion HENMT: Mouth: Yes moist mucous membranes Eyes: General: appearance normal, both eyes and all related structures Neck: Neck: supple Resp: Effort & Inspection: normal respiratory effort Auscultation: rales (Rales 1/4 up bilaterally) Cardio: Rate: regular rate and bradycardic Rhythm: regular rhythm Heart sounds: Murmur heart sound present (1/6 DEJA) GI: GI Palp: No abdominal tenderness Skin: General skin exam: normal color and no rashes or lesions noted Neuro: General: oriented to person, patient oriented x3 and No confusion Extrem: Right lower extremity: edema Left lower extremity: edema Other: Mild bilateral lower extremity edema Psych: Appearance: grossly normal Mental Status: mental status grossly normal Objective Data Vital Signs Vital Signs: Vital Signs - 24 hr 07/28/22 14:56 07/28/22 15:26 07/28/22 16:20 Temperature 97.8 F Pulse Rate 40 L 35 L 36 L Respiratory Rate 20 16 Blood Pressure 187/31 H 157/64 H Pulse Oximetry 94 96 Oxygen Delivery Room Air Oxygen Flow Rate 07/28/22 17:51 07/28/22 18:00 07/28/22 20:32 Temperature 97.3 F L Pulse Rate 35 L 25 L Respiratory Rate 20 Blood Pressure 152/46 H Pulse Oximetry 100 Oxygen Delivery Room Air Oxygen Flow Rate 07/28/22 20:00 07/28/22 23:18 07/29/22 00:54 Temperature 97.4 F L Pulse Rate 33 L 33 L Respiratory Rate 20 16 Blood Pressure 155/44 H Pulse Oximetry 100 Oxygen Delivery Room Air Oxygen Flow Rate 07/29/22 01:02 07/28/22 20:00 07/28/22 22:00 Temperature Pulse Rate 35 L 35 L 35 L Respiratory Rate 16 Blood Pressure Pulse Oximetry Oxygen Delivery Oxygen Flow Rate 07/29/22 00:00 07/29/22 00:00 07/29/22 02:00 Temperature Pulse Rate 35 L 33 L 53 L Respiratory Rate 16 Blood Pressure Pulse Oximetry 100 Oxygen Delivery Nasal Cannula Oxygen Flow Rate 3 07/29/22 04:00 07/29/22 04:00 07/29/22 05:04 Temperature 97.5 F L Pulse Rate 35 L 36 L Respiratory Rate 20 Blood Pressure 162/41 H Pulse Oximetry 100 98 Oxygen Delivery Nasal Cannula Oxygen Flow Rate 3 07/29/22 06:00 07/29/22 08:00 07/29/22 09:00 Temperature 98.4 F Pulse Rate 35 L 36 L 36 L Respiratory Rate 24 H Blood Pressure 179/29 H Pulse Oximetry 98 97 Oxygen Delivery Nasal Cannula Oxygen Flow Rate 3 07/29/22 08:00 07/29/22 08:00
--- NOTE | 2022-07-29 16:22 | PM.OP ---
Procedure Note - Brief Procedure Note - Brief Date of procedure: 07/29/22 Complete heart block Post-op diagnosis: Same (S/ post dual-chamber pacemaker) Procedure performed: temporary transvenous pacemaker venogram Placement of a permanent dual-chamber Medtronic pacemaker Surgeon: Brigitte Martin MD Findings: complete heart block Description of procedure: uneventful placement of a permanent dual-chamber pacemaker Urine output (mL): 750 Complications: No immediate complications Condition: Stable Disposition: Floor
--- NOTE | 2022-07-29 16:27 | ECG_ITS ---
Measurements Intervals [place] Rate: 83 P: 48 NM: 205 QRS: -1 QRSD: 125 T: 55 QT: 406 QTc: 478 Interpretive Statements Possible eLECTRONIC VENTRICULAR PACEMAKER, though with an RBBB pattern ABNORMAL RHYTHM ECG COMPARED TO ECG 07/28/2022 15:14:18 AV BLOCK, COMPLETE (THIRD-DEGREE) NO LONGER PRESENT Electronically Signed On 07-29-2022 18:20:28 CDT by Brigitte Martin M.D.
--- NOTE | 2022-07-29 16:31 | W.PM.PROC2 ---
Procedure Note - Detailed Date of Procedure 07/29/22 Pre-op Diagnosis Complete heart block Post-op Diagnosis Other (For pacemaker for complete heart block) Procedure Performed Temporary transvenous pacemaker Anesthesia per Anesthesia Department. Implantation of a temporary transvenous pacemaker Venogram Implantation of permanent dual-chamber transvenous pacemaker Surgeon Brigitte Martin MD Anesthesia Other (Anesthesia per Basia Forrest CRNA, and Tiki Nathan CRNA) Findings Complete heart block Description of Procedure HISTORY: Patient presents with new onset of complete heart block, symptomatic with heart failure.? She has an underlying RBBB.? She does take verapamil SR 240 mg daily which may contribute but most likely this is AV conduction disease secondary to aging.? Because of her history of aortic stenosis probably has a lot of calcium along the conduction system as well.? She is fairly stable, with no pauses, but this has not resolved since her last dose of verapamil 07/27/2022. I recommended permanent pacemaker implant. In addition she has history of coronary disease, aortic stenosis and sleep apnea and is followed by Dr. Dewitt. SITE: Left prepectoral area MEDICATIONS GIVEN IN EQUITY RESEARCH ASSOCIATE: Ancef 2 gram IV piggyback PROCEDURE: After informed consent , the patient was brought to the laborer electroplating and the left femoral area is prepped and draped in the usual fashion. Locate the femoral artery or vein using vascular ultrasound but after palpating the artery was able to anesthetize the area punctured cannulate the femoral vein with a 6 [place] sheath. I then passed a balloon tipped pacing wire into the right ventricular apex. Had very good thresholds, set for 80 beats per minute. Next the prepectoral area was prepped and draped in usual fashion . The patient received preop antibiotic and sedation . The left prepectoral area was anesthetized with lidocaine . A venogram was performed showing the course of the left subclavian vein, which was patent. Next a skin incision was made and carried down to the prepectoral fascia. Hemostasis was obtained using electrocautery . The pacer pocket was formed. The left subclavian vein was easily accessed with the micropuncture technique, and a J-tipped guide wire was passed into the inferior vena cava under fluoroscopic guidance. The needle was withdrawn. A 2nd attempt resulted in inadvertant puncture of the subclavian artery using micropuncture technique, without consequence. I elected to place a 2nd wire using read the retained wire technique through the initial puncture site. A 2nd wire was introduced in into the inferior vena cava. A 7 [place] safety sheath was passed over 1 wire, the wire withdrawn, and the right ventricular lead was passed into the inferior vena cava under fluoroscopic guidance . The lead was then prolapsed through the tricuspid valve and advanced into the right ventricular apex. Required repositioning a couple times for optimal pacing and sensing. When suitable sensing and pacing thresholds were obtained, it was screwed into place. No extra cardiac stimulation was obtained using 10 volts. The sheath was withdrawn. Next, another 7 [place] safety sheath was passed over the 2nd wire, the wire withdrawn, and the right atrial lead was passed into the inferior vena cava under fluoroscopic guidance. Right atrial lead was then pulled back to the level of the right atrium and manipulated into the right atrial appendage . When suitable sensing and pacing thresholds were obtained , it was screwed into place . No extra cardiac stimulation was obtained using 10 volts. The sheath was withdrawn. Both leads were secured to the prepectoral fascia using 2-0 silk over their respective sleeves. The pocket was cleansed with antibiotic containing solution . The pulse generator was introduced into the operative field, and both leads were secured into the generator . A gentle t
--- NOTE | 2022-07-29 17:25 | PC.NURSE ---
Pt returned from label tacker via bed. No issues noted
[2022-07-29 18:22] LABS: Glucose Point of Care 180 mg/dl (65-105)
[2022-07-29 20:11] LABS: Glucose Point of Care 331 mg/dl (65-105)
[2022-07-29] MEDS: ceFAZolin 2 GM/D5W 50 ML 2 GM/50 ML BAG IVPB (20:32)
[2022-07-29] MEDS: INSULIN ASPART (*BKC) 100 UNITS/ML SUB-Q (20:32)
[2022-07-29] MEDS: ATORVASTATIN 40 MG TABLET 80 MG PO (20:32)
[2022-07-29] MEDS: FUROSEMIDE 20 MG TABLET PO (20:33)
[2022-07-29] MEDS: CHOLECALCIFEROL 1,000 UNITS TABLET 2000 UNITS PO (20:33)
[2022-07-29] MEDS: oxyBUTYnin CHLORIDE XL 5 MG TAB.ER.24 PO (20:33)
[2022-07-29] MEDS: ASPIRIN 81 MG ENTERIC TABLET PO (20:33)
[2022-07-30] VITALS (16 sets, daily range): BP systolic 145–182; BP diastolic 56–68; PULSE 66–102; RESP 16–20; TEMP 36.3–37.1; O2SAT 96–100
[2022-07-30] MEDS: polyethylene glycoL 3350 17 GM POWD.PACK PO ×2 (00:03→13:00)
[2022-07-30] MEDS: ceFAZolin 2 GM/D5W 50 ML 2 GM/50 ML BAG IVPB (04:25)
[2022-07-30] MEDS: HYDROcodone/acetaminophen (*CRX) 5-325 MG TABLET 2 TAB PO (05:15)
[2022-07-30 08:11] LABS: Glucose Point of Care 241 mg/dl (65-105)
[2022-07-30 09:34] LABS: Anion Gap 7 mmol/L (8-16); Blood Urea Nitrogen 52 mg/dL (7-17); Calcium 9.1 mg/dL (8.4-10.2); Carbon Dioxide 28 mmol/L (22-30); Chloride 105 mmol/L (98-107); Estimated CRCL calculation 47 ml/min; Estimated Glomerular Filt Rate 52; Glucose 317 mg/dL (65-110); Potassium 4.6 mmol/L (3.4-5.0); Sodium 140 mmol/L (137-145)
[2022-07-30] MEDS: oxyBUTYnin CHLORIDE XL 5 MG TAB.ER.24 PO ×2 (09:46→21:12)
[2022-07-30] MEDS: lisinopriL 20 MG TABLET 40 MG PO (09:46)
[2022-07-30] MEDS: INSULIN GLARGINE (LANTUS) 1,000 UNITS/10 ML VIAL 75 UNITS SUB-Q (09:47)
[2022-07-30] MEDS: AZELASTINE HCL NASAL 0.1% 137 MCG/SPR 30 ML BTL 1 SPRAY NASAL ×2 (09:47→21:11)
[2022-07-30] MEDS: INSULIN ASPART (*BKC) 100 UNITS/ML SUB-Q ×4 (09:47→21:12)
[2022-07-30] MEDS: FUROSEMIDE 40 MG TABLET PO (09:47)
--- NOTE | 2022-07-30 10:12 | WPDANESPN ---
Anes - Prog Note Post-Op Date/Time: 07/30/22 10:12 Cardiovascular status: normal Respiratory status: normal Airway patency: baseline Mental status: baseline Post-Op hydration status: normal Vital Signs: Last Vital Signs Temp 37.1 C 07/30/22 08:00 Pulse 77 07/30/22 08:00 Resp 16 07/30/22 08:00 BP 163/64 H 07/30/22 08:00 Pulse Ox 96 07/30/22 08:28 O2 Del Method Nasal Cannula 07/30/22 08:28 O2 Flow Rate 1 07/30/22 08:28 FiO2 21 07/30/22 00:16 Pain Score (VAS): 0 I/O: Intake & Output 07/29/22 07/30/22 07/30/22 23:59 07:59 15:59 Intake Total 530 950 Output Total 2350 1500 Balance -1820 -550 Laboratory Tests 07/28/22 15:21 07/30/22 09:16 07/29/22 07/29/22 07/29/22 11:12 18:18 20:07 Sodium Potassium Chloride Carbon Dioxide Anion Gap BUN Creatinine Estim Creat Clear Calc Estimated GFR Glucose POC Capillary Glucose 167 H 180 H 331 H Calcium 07/30/22 07/30/22 07:25 09:16 Sodium 140 Potassium 4.6 Chloride 105 Carbon Dioxide 28 Anion Gap 7 L BUN 52 H D Creatinine 1.00 Estim Creat Clear Calc 47 Estimated GFR 52 L Glucose 317 H POC Capillary Glucose 241 H Calcium 9.1 Post-procedural complaints: none Patient Feedback: Patient satisfied with anesthetic care.
--- NOTE | 2022-07-30 10:22 | PM.IMPN ---
Progress Note: A&P Assessment and Plan (1) Complete heart block: Code(s): I44.2 - Atrioventricular block, complete Status: Acute Assessment and Plan: cardiology consulted. patient underwent pacemaker placement. Surgical site looks clean. pacemaker interrogated by Medtronic and seems to be working fine. verapamil on hold (2) Acute on chronic diastolic congestive heart failure: Code(s): I50.33 - Acute on chronic diastolic (congestive) heart failure Status: Acute Assessment and Plan: continue Lasix. Monitor intake and output. Appreciate Cardiology input (3) Acute kidney injury: Code(s): N17.9 - Acute kidney failure, unspecified Status: Acute Assessment and Plan: Avoid nephrotoxic medications. Monitor renal functions (4) Insulin dependent diabetes mellitus: Status: Acute Assessment and Plan: Continue basal insulin. Initiate sliding scale insulin, Accu-Cheks, and hypoglycemic protocol. Check hemoglobin A1c. (5) Obstructive sleep apnea: Code(s): G47.33 - Obstructive sleep apnea (adult) (pediatric) Status: Acute Assessment and Plan: She is noncompliant with CPAP at home but uses nocturnal oxygen. Plan will get PT and OT since patient has significant weakness Subjective Date/time seen: 07/30/22 10:22 Interval history: no chest pain, shortness of breath is at baseline Review of Systems Review of Systems: Twelve systems were reviewed and are negative except for as per HPI. Exam Const: General: cooperative and uncomfortable (Back pain with movement); No healthy appearing, comfortable or confusion Orientation/consciousness: oriented to person, patient oriented x3 and No confusion HENMT: Mouth: Yes moist mucous membranes Eyes: General: appearance normal, both eyes and all related structures Neck: Neck: supple Resp: Effort & Inspection: normal respiratory effort Auscultation: rales (Rales 1/4 up bilaterally) Cardio: Rate: regular rate and bradycardic Rhythm: regular rhythm Heart sounds: Murmur heart sound present (1/6 DEJA) GI: GI Palp: No abdominal tenderness Skin: General skin exam: normal color and no rashes or lesions noted Neuro: General: oriented to person, patient oriented x3 and No confusion Extrem: Right lower extremity: edema Left lower extremity: edema Other: Mild bilateral lower extremity edema Psych: Appearance: grossly normal Mental Status: mental status grossly normal Objective Data Vital Signs Vital Signs: Vital Signs - 24 hr 07/29/22 12:00 07/29/22 12:00 07/29/22 12:00 Temperature 99.3 F Pulse Rate 36 L 37 L Respiratory Rate 24 H Blood Pressure 155/38 H Pulse Oximetry 98 98 Oxygen Delivery Nasal Cannula Oxygen Flow Rate 3 Fraction of Inspired Oxygen 07/29/22 16:35 07/29/22 16:50 07/29/22 17:05 Temperature 96.7 F L Pulse Rate 80 82 83 Respiratory Rate 20 20 20 Blood Pressure 148/95 H 153/59 H 175/58 H Pulse Oximetry 98 97 97 Oxygen Delivery Nasal Cannula Nasal Cannula Nasal Cannula Oxygen Flow Rate 3 3 3 Fraction of Inspired Oxygen 07/29/22 17:20 07/29/22 17:25 07/29/22 18:00 Temperature Pulse Rate 85 80 Respiratory Rate 20 Blood Pressure 177/53 H Pulse Oximetry 99 99 Oxygen Delivery Nasal Cannula Nasal Cannula Oxygen Flow Rate 3 3 Fraction of Inspired Oxygen 07/29/22 17:50 07/29/22 18:20 07/29/22 19:18 Temperature 97.7 F 97.6 F 97.7 F Pulse Rate 83 89 86 Respiratory Rate 20 24 H 20 Blood Pressure 161/56 H 114/73 179/51 H Pulse Oximetry 100 99 100 Oxygen Delivery Oxygen Flow Rate Fraction of Inspired Oxygen 07/29/22 20:00 07/29/22 20:00 07/29/22 22:00 Temperature Pulse Rate 89 84 Respiratory Rate Blood Pressure Pulse Oximetry 100 Oxygen Delivery Nasal Cannula Oxygen Flow Rate 3 Fraction of Inspired Oxygen 07/29/22 23:52 07/30/22 00:16 07/30/22 00:00 Temperature 97.7
[2022-07-30 11:16] LABS: Glucose Point of Care 317 mg/dl (65-105)
--- NOTE | 2022-07-30 11:49 | PM.PNCARD ---
Progress Note: A&P Assessment and Plan (1) Complete heart block: Code(s): I44.2 - Atrioventricular block, complete Status: Acute Plan 87-year-old lady who is stable with acquired complete heart block status post implantation of dual-chamber pacemaker yesterday. She is stable for discharge from our perspective as long she is ambulatory and there is no significant fall concern. We will arrange for follow-up appointment 1 week from today in the office for dressing removal. Follow-up will be in our office with Dr. Dewitt who has been seeing her chronically. Tucker Oglesby MD [facility] Subjective Date/time seen: Date of service: 07/30/22 11:49 Interval history: Follow-up visit in this 87-year-old woman with: Symptomatic bradycardia with acquired complete heart block status post implantation of permanent dual-chamber pacemaker system yesterday. Device has been interrogated today by [employer] it is functioning normally. Today's chest x-ray demonstrates normal lead position no evidence of pneumothorax. Exam Const: General: comfortable Other: Obese elderly lady has unsteady ambulation but is up ambulating with physical therapy HENMT: Mouth: Yes moist mucous membranes Eyes: Sclera: sclerae normal Neck: Neck: supple Resp: Effort & Inspection: normal respiratory effort Auscultation: clear to auscultation bilaterally Other: Pacemaker dressing is clean and dry Cardio: Rate: regular rate Rhythm: regular rhythm Other: Paced rhythm GI: GI Palp: Yes Soft to palpation Auscultation: normal bowel sounds Skin: General skin exam: normal color Neuro: Other: Alert and oriented Objective Data Vital Signs Vital Signs: Vital Signs - 24 hr 07/29/22 12:00 07/29/22 12:00 07/29/22 12:00 Temperature 37.4 C Pulse Rate 36 L 37 L Respiratory Rate 24 H Blood Pressure 155/38 H Pulse Oximetry 98 98 Oxygen Delivery Nasal Cannula Oxygen Flow Rate 3 Fraction of Inspired Oxygen 07/29/22 16:35 07/29/22 16:50 07/29/22 17:05 Temperature 35.9 C L Pulse Rate 80 82 83 Respiratory Rate 20 20 20 Blood Pressure 148/95 H 153/59 H 175/58 H Pulse Oximetry 98 97 97 Oxygen Delivery Nasal Cannula Nasal Cannula Nasal Cannula Oxygen Flow Rate 3 3 3 Fraction of Inspired Oxygen 07/29/22 17:20 07/29/22 17:25 07/29/22 18:00 Temperature Pulse Rate 85 80 Respiratory Rate 20 Blood Pressure 177/53 H Pulse Oximetry 99 99 Oxygen Delivery Nasal Cannula Nasal Cannula Oxygen Flow Rate 3 3 Fraction of Inspired Oxygen 07/29/22 17:50 07/29/22 18:20 07/29/22 19:18 Temperature 36.5 C 36.4 C 36.5 C Pulse Rate 83 89 86 Respiratory Rate 20 24 H 20 Blood Pressure 161/56 H 114/73 179/51 H Pulse Oximetry 100 99 100 Oxygen Delivery Oxygen Flow Rate Fraction of Inspired Oxygen 07/29/22 20:00 07/29/22 20:00 07/29/22 22:00 Temperature Pulse Rate 89 84 Respiratory Rate Blood Pressure Pulse Oximetry 100 Oxygen Delivery Nasal Cannula Oxygen Flow Rate 3 Fraction of Inspired Oxygen 07/29/22 23:52 07/30/22 00:16 07/30/22 00:00 Temperature 36.5 C Pulse Rate 87 83 Respiratory Rate 20 Blood Pressure 169/61 H Pulse Oximetry 100 100 100 Oxygen Delivery Room Air Nasal Cannula Oxygen Flow Rate 3 Fraction of Inspired Oxygen 07/30/22 00:00 07/30/22 02:00 07/30/22 04:00 Temperature Pulse Rate 85 81 Respiratory Rate Blood Pressure Pulse Oximetry 100 Oxygen Delivery Nasal Cannula Oxygen Flow Rate 3 Fraction of Inspired Oxygen 07/30/22 04:00 07/30/22 04:00 07/30/22 05:53 Temperature 36.4 C Pulse Rate 74 66 68 Respiratory Rate 20 Blood Pressure 145/68 H Pulse Oximetry 100 Oxygen Delivery Oxygen Flow Rate Fraction of Inspired Oxygen 07/30/22 08:00 07/30/22 08:20 07/30/22 08:28 Temperature 37.1 C Pulse Rate 77 Respiratory Rate 16 Blood Pressure 163/64 H Pulse Oxim
[2022-07-30 12:58] LABS: Glucose Point of Care 324 mg/dl (65-105)
[2022-07-30] MEDS: DOCUSATE SODIUM 100 MG CAPSULE PO (13:00)
[2022-07-30 17:22] LABS: Glucose Point of Care 372 mg/dl (65-105)
[2022-07-30 21:09] LABS: Glucose Point of Care 289 mg/dl (65-105)
[2022-07-30] MEDS: CHOLECALCIFEROL 1,000 UNITS TABLET 2000 UNITS PO (21:12)
[2022-07-30] MEDS: FUROSEMIDE 20 MG TABLET PO (21:12)
[2022-07-30] MEDS: ASPIRIN 81 MG ENTERIC TABLET PO (21:12)
[2022-07-30] MEDS: ATORVASTATIN 40 MG TABLET 80 MG PO (21:12)
[2022-07-30] MEDS: CEPHALEXIN 500 MG CAPSULE PO (21:12)
[2022-07-31] VITALS (9 sets, daily range): BP systolic 157–175; BP diastolic 60–86; PULSE 70–92; RESP 20–22; TEMP 36.4–37; O2SAT 95–100
[2022-07-31 08:09] LABS: Glucose Point of Care 131 mg/dl (65-105)
--- NOTE | 2022-07-31 08:41 | PM.DS ---
DS: Admitting Diagnosis Discharge Date 07/31/2022 Admitting Diagnosis Third degree AV block DS: Discharge Diagnosis Discharge Diagnosis (1) Complete heart block: Code(s): I44.2 - Atrioventricular block, complete Status: Acute Assessment and Plan: cardiology consulted. patient underwent pacemaker placement. Surgical site looks clean. pacemaker interrogated by [employer] and seems to be working fine. Pacing at 90 bpm on day of discharge. (2) Acute on chronic diastolic congestive heart failure: Code(s): I50.33 - Acute on chronic diastolic (congestive) heart failure Status: Acute Assessment and Plan: continue Lasix. (3) Acute kidney injury: Code(s): N17.9 - Acute kidney failure, unspecified Status: Acute Assessment and Plan: Avoid nephrotoxic medications. Monitor renal function. Creatinine 1.0 at discharge, improved from 1.6 at admission. (4) Insulin dependent diabetes mellitus: Status: Acute Assessment and Plan: Continue basal insulin. Initiate sliding scale insulin, Accu-Cheks, and hypoglycemic protocol. Check hemoglobin A1c. (5) Obstructive sleep apnea: Code(s): G47.33 - Obstructive sleep apnea (adult) (pediatric) Status: Acute Assessment and Plan: She is noncompliant with CPAP at home but uses nocturnal oxygen. DS: Summary Hospital Course Reason for hospitalization: third degree av block Hospital Course: Admitted 07/29/2022 with chest pressure and shortness of breath during the night. Was found to be in third-degree AV block with heart rate 30s when she was admitted. 07/29/2022 at pace maker placement performed. Tolerated well. 07/30/2022 arrange was made to discharge to [facility] when bed available. Pacemaker continue to function well with interrogation by [employer] showing good function. 07/31/22 bed available at [facility] patient was discharged in stable condition. Creatinine had improved from 1.6 at admission to 1.0 at discharge. She was tolerating her diet. Alert and oriented. Able to participate in therapy. To continue wearing left upper extremity sling until released by Cardiology. Time Spent with Patient Time attestation: Total time spent providing and/or coordinating discharge services: Exam Narrative: General: Well-developed female in no acute distress sitting up in bed. HEENT: PERRL, EOMI. Sclera anicteric. Oral mucosa moist. Neck: Supple. No JVD. Respiratory: Respirations are nonlabored and she is speaking in full sentences. Fine crackles at both bases. Cardiovascular: NL S1,S2, RR Gastrointestinal: Abdomen is soft, obese, nontender, and nondistended with positive bowel sounds. Skin: Warm and dry. No rash or lesions on limited exam. Extremities: No cyanosis or clubbing. trace ankle edema bilaterally. Neurological: Alert. Cranial nerves 2-12 are grossly intact. No gross focal deficits to casual conversation. Psychiatric: Cooperative. Appropriate mood and affect. DS: Data Data Completed and Pending Labs on day of discharge: Labs from last 24 hours 07/31/22 07/30/22 07/30/22 07:58 20:57 16:15 Sodium Potassium Chloride Carbon Dioxide Anion Gap BUN Creatinine Estim Creat Clear Calc Estimated GFR Glucose POC Capillary Glucose 131 H 289 H 372 H Calcium 07/30/22 07/30/22 07/30/22 12:13 11:08 09:16 Sodium 140 Potassium 4.6 Chloride 105 Carbon Dioxide 28 Anion Gap 7 L BUN 52 H D Creatinine 1.00 Estim Creat Clear Calc 47 Estimated GFR 52 L Glucose 317 H POC Capillary Glucose 324 H 317 H Calcium 9.1 Discharge Plan Discharge Consulting providers: Brigitte Martin Discharging Clinician: Best Zacarias Patient Disposition: SNF Activity: no straining and other - see discharge instructions Diet: heart healthy and diabetic Discharge Instructions: Medications: -
[2022-07-31] MEDS: INSULIN GLARGINE (LANTUS) 1,000 UNITS/10 ML VIAL 75 UNITS SUB-Q (09:07)
[2022-07-31] MEDS: lisinopriL 20 MG TABLET 40 MG PO (09:07)
[2022-07-31] MEDS: oxyBUTYnin CHLORIDE XL 5 MG TAB.ER.24 PO (09:07)
[2022-07-31] MEDS: CEPHALEXIN 500 MG CAPSULE PO (09:09)
[2022-07-31] MEDS: AZELASTINE HCL NASAL 0.1% 137 MCG/SPR 30 ML BTL 1 SPRAY NASAL (09:09)
[2022-07-31] MEDS: FUROSEMIDE 40 MG TABLET PO (09:09)
[2022-07-31 09:59] LABS: Influenza A QL RT-PCR Negative (Negative); Influenza B QL RT-PCR Negative (Negative); SARS-CoV-2 RNA PCR Negative (Negative)
--- NOTE | 2022-07-31 11:13 | PCPTNOTE ---
Attempted to see patient for PT, however patient declined due to anticipated discharge.
[2022-07-31 12:42] LABS: Glucose Point of Care 329 mg/dl (65-105)
[2022-07-31] MEDS: INSULIN ASPART (*BKC) 100 UNITS/ML SUB-Q (12:46)
[2022-07-31 16:52] LABS: Glucose Point of Care 204 mg/dl (65-105)
== END 2022-07-31 17:30 ==
LOC: ANHED 16:29 → ANHIMU 17:20
PROVIDERS: Internal Medicine Cardiovascular Disease; Physician Assistant; Admitting Provider Hospitalist; Emergency Provider Emergency Medicine; PCP Hospitalist; Visit Provider Internal Medicine
PROC: 0JH606Z Insertion of Pacemaker, Dual Chamber into Chest Subcutaneous Tissue and Fascia, Open Approach (ICD-10-PCS; CPT 33208; principal; 2022-07-29 13:30)
PROC: (CPT 33210; 2022-07-29 13:30)
DX: I44.2 Atrioventricular block, complete (principal); I11.0 Hypertensive heart disease with heart failure; I50.33 Acute on chronic diastolic (congestive) heart failure; N17.9 Acute kidney failure, unspecified; G47.33 Obstructive sleep apnea (adult) (pediatric); Z99.89 Dependence on other enabling machines and devices; I25.10 Atherosclerotic heart disease of native coronary artery without angina pectoris; I35.0 Nonrheumatic aortic (valve) stenosis; Z20.822 Contact with and (suspected) exposure to COVID-19; I45.10 Unspecified right bundle-branch block; R06.09 Other forms of dyspnea; R05.9 Cough, unspecified; R53.83 Other fatigue; R00.1 Bradycardia, unspecified; R94.31 Abnormal electrocardiogram [ECG] [EKG]; E66.9 Obesity, unspecified; Z68.38 Body mass index [BMI] 38.0-38.9, adult; E11.9 Type 2 diabetes mellitus without complications; J84.9 Interstitial pulmonary disease, unspecified; R79.89 Other specified abnormal findings of blood chemistry; E78.00 Pure hypercholesterolemia, unspecified; M15.9 Polyosteoarthritis, unspecified; F10.90 Alcohol use, unspecified, uncomplicated; Z95.5 Presence of coronary angioplasty implant and graft; Z79.82 Long term (current) use of aspirin; Z79.4 Long term (current) use of insulin; Z79.1 Long term (current) use of non-steroidal anti-inflammatories (NSAID); Z79.891 Long term (current) use of opiate analgesic; Z82.49 Family history of ischemic heart disease and other diseases of the circulatory system; Z82.61 Family history of arthritis
CPT/HCPCS: 33208; 33210; 36415; 71045; 71046; 80048; 80053; 82948; 83036; 83735; 83880; 84443; 84484; 85025; 85610; 85730; 87636; 93005; 93970; 94640; 96374; 96375; 96376; 97162; 97166; 97530; 97535; 99285; A9270; C1779; C1785; C1894; G0378; J0612; J0690; J1644; J1815; J1940; J3010; J7040